=== PATIENT | female | born 1975 | race American Indian/Alaskan Native ===

== ENCOUNTER 2017-08-13 09:59 | Emergency (ER) | payer MEDICAID ==
[~2017-08-13] VITALS: Ht 167.6 cm; Wt 104.8 kg
[2017-08-13 10:12] VITALS: BP 147/99
== END 2017-08-13 12:45 | disposition left against medical advice (07) ==
LOC: ER 09:59
DX: N89.8 Other specified noninflammatory disorders of vagina (principal); Z53.21 Procedure and treatment not carried out due to patient leaving prior to being seen by health care provider